=== PATIENT | female | born 1955 | race Caucasian/White ===

== ENCOUNTER 2018-11-05 15:56 | Emergency (ER) | payer SELFPAY ==
[2018-11-05] MEDS ORDERED: NS(*) 0.9% 1000 ML BAG 1,000 ML IV ONE (16:10)
[2018-11-05] MEDS ORDERED: ASPIRIN 81 MG CHEW CHEW ONE (16:10)
[2018-11-05] MEDS ORDERED: TENECTEPLASE 50 MG KIT IVP ONE (16:25)
[2018-11-05 16:28] LABS: PLATELET COUNT, AUTOMATED 863 K/uL (150-450)
[2018-11-05] MEDS ORDERED: HEPARIN SOD/D5W 25000/250 ML 250 ML IV ONE ×2 (16:28→16:35)
[2018-11-05] MEDS ORDERED: CLOPIDOGREL BISULFATE 75MG TAB PO ONE (16:30)
[2018-11-05] MEDS ORDERED: HEPARIN (PORC) 5000 UN/ML VIAL IVP ONE (16:30)
--- NOTE | 2018-11-05 16:49 | RADIOLOGY IMAGING REPORT ---
FACILITY: [facility] - [place] PATIENT NAME: Pita Muñiz : 1955 MR: [id number] V: [id number] EXAM DATE: ORDERING PHYSICIAN: BAUDILIO THOMPSON TECHNOLOGIST: Location: [facility] [place] Patient: Pita Muñiz : 1955 Visit/Account:[id number] Date of Sevice: 11/05/2018 CHEST SINGLE AP INDICATION: STEMI COMPARISON: None available FINDINGS: The cardiac silhouette is enlarged. There is a large hiatal hernia present. There is no focal infiltrate or lobar consolidation. There is no pneumothorax or pleural effusion. IMPRESSION: 1. Cardiomegaly without focal infiltrate 2. Large hiatal hernia Report Dictated By: Memo Trotter at 11/05/2018 4:43 PM Report E-Signed By: Memo Trotter at 11/05/2018 4:43 PM WSN:[id number]
--- NOTE | 2018-11-05 16:55 | EKG ---
FACILITY: [facility] [place] PATIENT NAME: ALEENA MORRISSEY : [id number] MR: [id number] V: [id number] EXAM DATE: ORDERING PHYSICIAN: BAUDILIO THOMPSON TECHNOLOGIST: ENRIQUE Valdez Reason : CP Blood Pressure : / mmHG Vent. Rate : 073 BPM Atrial Rate : 073 BPM P-R Int : 216 ms QRS Dur : 082 ms QT Int : 410 ms P-R-T Axes : 048 051 076 degrees QTc Int : 451 ms Sinus rhythm with 1st degree AV block Posterior infarct , age undetermined Inferior injury pattern ACUTE [place] Abnormal ECG When compared with ECG of 05-NOV-2018 15:54, Sinus rhythm has replaced Wide QRS rhythm Confirmed by MAGGI BROWN ([id number]) on 11/06/2018 6:24:46 AM Referred By: JAY Confirmed By:MAGGI BROWN
--- NOTE | 2018-11-05 16:55 | EKG ---
FACILITY: [facility] - [place] PATIENT NAME: ALEENA MORRISSEY : [id number] MR: [id number] V: [id number] EXAM DATE: ORDERING PHYSICIAN: BAUDILIO THOMPSON TECHNOLOGIST: ENRIQUE Valdez Reason : CP Blood Pressure : / mmHG Vent. Rate : 069 BPM Atrial Rate : 075 BPM P-R Int : 000 ms QRS Dur : 142 ms QT Int : 448 ms P-R-T Axes : -15 159 027 degrees QTc Int : 480 ms Sinus rhythm with AV dissociation and Wide QRS rhythm Right bundle branch block Inferior infarct , possibly acute ACUTE [place] Abnormal ECG No previous ECGs available Confirmed by MAGGI BROWN ([id number]) on 11/06/2018 6:24:26 AM Referred By: ER Confirmed By:MAGGI BROWN
[2018-11-05] MEDS ORDERED: POTASSIUM CHL 20 MEQ TABCR PO ONE (17:05)
--- NOTE | 2018-11-05 17:16 | ER Report ---
History and Physical Time Seen By MD: 15:58 Hx. of Stated Complaint: SEVERE CHEST PAIN MONDAY, INCREASED STRESS, DECREASED FOOD INTAKE HPI/ROS CHIEF COMPLAINT: Chest pain HISTORY OF PRESENT ILLNESS: 63-year-old female presents with central chest burning and radiation to left arm. Pain started 15 minutes prior to arrival. Patient had near syncopal episode with urinary incontinence that followed chest pain. Patient states pain is pressure-like. It does not radiate to the back or the right side. Patient has had this twice in the past 3-4 days. She had this Monday night and felt like she was going to but because it was burning she did not think it was a heart attack. Patient has never had prior episodes or c ardiac workup. Her father of a heart attack in her mother's had an AR as well. Patient is unable to give exacerbating or relieving factors. She has had no recent illnesses. She denies any recent trauma, falls. She denies bloody or black stools. She denies vomiting. She does say she gets bad GERD symptoms. She has not had recent medical care. She recently moved back to [place]. She has had no recent travel or history of VTE. When asked she states she is DNR (though she would lift this temporarily for vp lab). She denies tobacco at any time (initial report of + tobac is incorrect) REVIEW OF SYSTEMS: Constitutional: No fever, no chills. Eyes: No discharge. ENT: No sore throat. Cardiovascular: above Respiratory: No cough, no shortness of breath. Gastrointestinal: No abdominal pain, no vomiting. Genitourinary: No hematuria. Musculoskeletal: No back pain. Skin: No rashes. Neurological: No headache. Remainder of the 14 system rev: Yes Allergies: Coded Allergies: No Known Drug Allergies (Unverified , 11/05/18) Home Meds No Active Prescriptions or Reported Meds Reviewed Nurses Notes: Yes Smoking Status: Never Smoker Constitutional Vital Sign - Last 24 Hours 11/05/18 11/05/18 11/05/18 11/05/18 15:58 16:00 16:05 16:06 Pulse 105 70 70 Resp 24 16 14 B/P (MAP) 81/63 81/63 (69) 85/61 (69) Pulse Ox 91 100 100 O2 Delivery Room Air 11/05/18 11/05/18 11/05/18/24/19 16:08 16:10 16:15 16:20 Pulse 70 77 70 Resp 10 7 16 B/P (MAP) 78/69 (72) 107/67 (80) Pulse Ox 100 85 89 O2 Flow Rate 3.0 11/05/18 11/05/18 11/05/18 11/05/18 16:25 16:30 16:35 16:40 Pulse 71 70 78 74 Resp 18 20 B/P (MAP) 95/65 (75) 107/70 (82) 108/75 (86) 114/70 (85) Pulse Ox 88 96 94 94 11/05/18 11/05/18 11/05/18 11/05/18 16:45 16:50 16:54 16:55 Pulse 82 75 80 B/P (MAP) 113/78 (90) 127/79 (95) 117/79 (92) Pulse Ox 99 100 95 11/05/18 11/05/18 11/05/18 11/05/18 16:59 17:00 17:04 17:05 Pulse 71 67 B/P (MAP) 118/77 (91) 130/76 (94) Pulse Ox 100 100 11/05/18 11/05/18 11/05/18 11/05/18 17:10 17:13 17:15 17:19 Pulse 78 B/P (MAP) 117/92 (100) 115/80 (92) 116/77 (90) 118/84 (95) Pulse Ox 94 100 11/05/18 11/05/18 11/05/18 11/05/18 17:20 17:25 17:30 17:35 Pulse 71 67 72 67 B/P (MAP) 113/82 (92) 117/81 (93) 119/83 (95) 108/85 (93) Pulse Ox 88 100 97 99 11/05/18 11/05/18 11/05/18 11/05/18 17:40 17:45 17:50 17:55 Pulse 71 70 70 71 B/P (MAP) 124/87 (99) 111/84 (93) 130/84 (99) 131/83 (99) Pulse Ox 95 99 96 100 11/05/18 11/05/18 11/05/18 18:00 18:05 18:10 Pulse 70 70 68 B/P (MAP) 127/85 (99) Pulse Ox 100 100 100 Physical Exam General Appearance: the patient is alert, airway is patent; she appears extremely pale and appears ill Eyes: Pupils equal and round no injection. ENT, Mouth: mucous membranes are dry Respiratory: There are no retractions, lungs are clear to auscultation. Cardiovascular: Regular rate and rhythm. peripheral pulses are thready. CR 3+ seconds Gastrointestinal: Abdomen is soft and non tender, no masses, bowel sounds normal. - brown stool, nl rectal tone Neurological: alert, awake, moves all ext Skin: warm and dry, pale throughout Musculoskeletal: Extremities are nontender, nonswollen and have full range of motion. DIFFERENTIAL DIAGNOSIS: After history and physical exam differential diagnosis was considered for chest pain including but not limited to myocardial ischemia, pericarditis pulmonary embolus, chest wall pain, pleural inflammation and pulmonary infectious causes.shortness of breath including but not limited to pulmonary infectious process, COPD, asthma, pulmonary embolus and congestive heart failure. Medical Decision Making Data Points Result Diagram: 11/05/18 9267 11/05/18 1557 Laboratory Hematology Test 11/05/18 15:55 11/05/18 16:33 11/05/18 17:27 Band Neutrophils % 2 % Toxic Granulation Pres Sodium Level 140 mmol/L (137-145) Potassium Level 2.6 mmol/L (3.5-5.0) Chloride Level 106 mmol/L (98-107) Carbon Dioxide Level 16 mmol/L (22-31) Blood Urea Nitrogen 15 mg/dl (7-18) Creatinine 0.90 mg/dl (0.52-1.04) Glomerular Filtration Rate Calc > 60.0 Random Glucose 223 mg/dl (75-110) Calcium Level 9.7 mg/dl (8.4-10.2) Total Bilirubin 1.4 mg/dl (0.2-1.3) Aspartate Amino Transf (AST/SGOT) 25 U/L (0-35) Alanine Aminotransferase (ALT/SGPT) 22 U/L (0-56) Alkaline Phosphatase 48 U/L (0-126) Troponin I 4.790 ng/ml Total Protein 6.9 g/dl (6.3-8.2) Albumin 4.1 g/dl (3.5-5.0) Stool Occult Blood (IFOB) Negative (NEGATIVE) Red Blood Count 4.62 M/uL (4.17-5.56) Mean Corpuscular Volume 64.4 fL (80.0-96.0) Mean Corpuscular Hemoglobin 18.5 pg (26.0-33.0) Mean Corpuscular Hemoglobin Concent 28.7 g/dL (32.0-36.0) Red Cell Distribution Width 33.0 % (11.5-14.5) Mean Platelet Volume 8.6 fL (7.2-11.1) Neutrophils (%) (Auto) % (39.4-72.5) Lymphocytes (%) (Auto) % (17.6-49.6) Monocytes (%) (Auto) % (4.1-12.4) Eosinophils (%) (Auto) % (0.4-6.7) Basophils (%) (Auto) % (0.3-1.4) Nucleated RBC Relative Count (auto) /100WBC Neutrophils # (Auto) K/uL (2.0-7.4) Lymphocytes # (Auto) K/uL (1.3-3.6) Monocytes # (Auto) K/uL (0.3-1.0) Eosinophils # (Auto) K/uL (0.0-0.5) Basophils # (Auto) K/uL (0.0-0.1) Nucleated RBC Absolute Count (auto) K/uL Neutrophils % (Manual) 83 % (39.4-72.5) Lymphocytes % (Manual) 12 % (17.6-49.6) Monocytes % (Manual) 5 % (4.1-12.4) Eosinophils % (Manual) 0 % (0.4-6.7) Basophils % (Manual) 0 % (0.3-1.4) Platelet Estimate High Hypochromasia 3+ Poikilocytosis 2+ Anisocytosis 3+ Microcytosis 3+ Target Cells 1+ Tear Drop Cells 1+ Ovalocytes 1+ Acanthocytes 1+ Peripheral Blood Smear Yes Y/N Chemistry Test 11/05/18 15:55 11/05/18 16:33 11/05/18 17:27 Band Neutrophils % 2 % Toxic Granulation Pres Glomerular Filtration Rate Calc > 60.0 Calcium Level 9.7 mg/dl (8.4-10.2) Total Bilirubin 1.4 mg/dl (0.2-1.3) Aspartate Amino Transf (AST/SGOT) 25 U/L (0-35) Alanine Aminotransferase (ALT/SGPT) 22 U/L (0-56) Alkaline Phosphatase 48 U/L (0-126) Troponin I 4.790 ng/ml Total Protein 6.9 g/dl (6.3-8.2) Albumin 4.1 g/dl (3.5-5.0) Stool Occult Blood (IFOB) Negative (NEGATIVE) White Blood Count 11.7 k/uL (4.5-11.0) Red Blood Count 4.62 M/uL (4.17-5.56) Hemoglobin 8.6 g/dL (12.0-16.0) Hematocrit 29.8 % (34.0-47.0) Mean Corpuscular Volume 64.4 fL (80.0-96.0) Mean Corpuscular Hemoglobin 18.5 pg (26.0-33.0) Mean Corpuscular Hemoglobin Concent 28.7 g/dL (32.0-36.0) Red Cell Distribution Width 33.0 % (11.5-14.5) Platelet Count 630 K/uL (150-450) Mean Platelet Volume 8.6 fL (7.2-11.1) Neutrophils (%) (Auto) % (39.4-72.5) Lymphocytes (%) (Auto) % (17.6-49.6) Monocytes (%) (Auto) % (4.1-12.4) Eosinophils (%) (Auto) % (0.4-6.7) Basophils (%) (Auto) % (0.3-1.4) Nucleated RBC Relative Count (auto) /100WBC Neutrophils # (Auto) K/uL (2.0-7.4) Lymphocytes # (Auto) K/uL (1.3-3.6) Monocytes # (Auto) K/uL (0.3-1.0) Eosinophils # (Auto) K/uL (0.0-0.5) Basophils # (Auto) K/uL (0.0-0.1) Nucleated RBC Absolute Count (auto) K/uL Neutrophils % (Manual) 83 % (39.4-72.5) Lymphocytes % (Manual) 12 % (17.6-49.6) Monocytes % (Manual) 5 % (4.1-12.4) Eosinophils % (Manual) 0 % (0.4-6.7) Basophils % (Manual) 0 % (0.3-1.4) Platelet Estimate High Hypochromasia 3+ Poikilocytosis 2+ Anisocytosis 3+ Microcytosis 3+ Target Cells 1+ Tear Drop Cells 1+ Ovalocytes 1+ Acanthocytes 1+ Peripheral Blood Smear Yes Y/N EKG/Imaging EKG Interpretation 12 lead EKG: Rhythm: ventricular rhytm, apparent av dissociation [place]: right QRS: widened, rbbb ST segments: st elevation ii, iii, avF; depression V1-3 STEMI rpt ek lead EKG: Rhythm: sinus rhythm with first deg av block (NV 216) [place]: normal QRS: normal ST segments: st elevation ii, iii, avF; V 1-3 depression: STEMI [ ] [ ] Monitor Interpretation: Other (STEMI) ED Course/Re-evaluation ED Course 63 f presents with sgs/symptoms of STEMI with hypotension; ASA administered and IVF bolus. I consulted cardiology at [facility], Dr. Weir (sp); we initially agreed upon tnk, plavix, heparin. However, prior to administering above, though pt denies GI bleed, initial hgb < 6. Pt consented for emergency release transfusion. Pt initially critically hypotensive; after 1L IVF and PRBC, her bp stabilizes to > 110 systolic throughout. As she has excellent peripheral access, will withhold central line at this time. Pt's pain initially 8/10, on reassessment, 3/10. after 2 units has continued stemi, now with sinus rhythm, hgb now 8.6 CXR nl without widened mediastinum Can Washer Destin (sp) accepting to [facility] ICU pt admin 40 meq potassium po for hypok - recommend recheck at receiving facility pt continues to be dnr/dni except for vp lab Decision to Disposition Date: Nov 05, 2018 Decision to Disposition Time: 18:10 Critical Care Time I spent a total of 120 minutes of critical care time in obtaining history, performing a physical exam, bedside monitoring of interventions, collecting and interpreting tests and discussion with consultants but not including time spent performing procedures. Depart Departure Latest Vital Signs Vital Signs Date Time Temp Pulse Resp B/P (MAP) Pulse Ox O2 Delivery O2 Flow Rate FiO2 11/05/18 18:10 68 100 11/05/18 18:00 127/85 (99) 11/05/18 16:30 20 11/05/18 16:08 3.0 11/05/18 15:58 Room Air Impression: Primary Impression: STEMI (ST elevation myocardial infarction) Additional Impressions: Severe anemia Hypokalemia Condition: Critical Disposition: XFER TO [facility] ([facility]) New Scripts No Active Prescriptions or Reported Meds Problem Qualifiers Primary Impression: STEMI (ST elevation myocardial infarction) Involved coronary artery: unspecified coronary artery Qualified Codes: I21.3 - ST elevation (STEMI) myocardial infarction of unspecified site BAUDILIO THOMPSON MD Nov 05, 2018 17:16
[2018-11-05 17:35] LABS: PLATELET COUNT, AUTOMATED 630 K/uL (150-450)
--- NOTE | 2018-11-05 17:53 | EKG ---
FACILITY: [facility] PATIENT NAME: ALEENA MORRISSEY : [id number] MR: [id number] V: [id number] EXAM DATE: ORDERING PHYSICIAN: BAUDILIO THOMPSON TECHNOLOGIST: CATARINO Valdez Reason : REPEAT-OH Blood Pressure : / mmHG Vent. Rate : 068 BPM Atrial Rate : 080 BPM P-R Int : 000 ms QRS Dur : 080 ms QT Int : 402 ms P-R-T Axes : 000 052 078 degrees QTc Int : 427 ms Accelerated Junctional rhythm with occasional premature ventricular complexes and fusion complexes Posterior infarct (cited on or before 05-NOV-2018) Inferior injury pattern ACUTE [place] Abnormal ECG When compared with ECG of 05-NOV-2018 16:45, Junctional rhythm has replaced Sinus rhythm Serial changes of evolving Posterior infarct present Confirmed by MAGGI BROWN ([id number]) on 11/06/2018 6:25:04 AM Referred By: JAY Confirmed By:MAGGI BROWN
[2018-11-05 18:00] VITALS: BP 127/85
[2018-11-05] MEDS ORDERED: POTASSIUM CHL 10% SF LIQ 20MEQ PO ONE (18:05)
--- NOTE | 2018-11-06 08:37 | EKG ---
FACILITY: [facility] - [place] PATIENT NAME: ALEENA MORRISSEY : [id number] MR: [id number] V: [id number] EXAM DATE: ORDERING PHYSICIAN: MAGGI BROWN TECHNOLOGIST: CATARINO Valdez Reason : REPEAT Blood Pressure : / mmHG Vent. Rate : 071 BPM Atrial Rate : 071 BPM P-R Int : 218 ms QRS Dur : 082 ms QT Int : 416 ms P-R-T Axes : 038 053 082 degrees QTc Int : 452 ms Sinus rhythm with 1st degree AV block with occasional premature ventricular complexes Posterior infarct , possibly acute Inferior injury pattern ACUTE [place] Abnormal ECG Relatively unchanged from previous Confirmed by WING PARRA ([id number]) on 11/06/2018 6:04:44 PM Referred By: JAY Confirmed By:WING PARRA
== END 2018-11-05 18:40 | disposition short-term general hospital (02) ==
LOC: ER 16:02
DX: I21.3 ST elevation (STEMI) myocardial infarction of unspecified site (principal); D64.9 Anemia, unspecified; E87.6 Hypokalemia
CPT/HCPCS: 36415; 36416; 71045; 82274; 82948; 84484; 85025; 86850; 86900; 86901; 86920; 93005; 96360; 96361; 99291; 99292; J7030; P9016; 82040; 82247; 82310; 82374; 82435; 82565; 82947; 84075; 84132; 84155; 84295; 84450; 84460; 84520

== ENCOUNTER → 2018-11-05 | Outpatient (CLI) | payer SELFPAY | LOC: AMB 15:31 | PROVIDERS: ATTEND Nurse Practitioner | DX: R40.4 Transient alteration of awareness (principal) | CPT/HCPCS: A0425; A0427 ==

== ENCOUNTER → 2018-11-05 | Outpatient (REF) | LOC: AMB 18:08 | PROVIDERS: ATTEND Nurse Practitioner | DX: Z02.9 Encounter for administrative examinations, unspecified (principal) ==